=== PATIENT | male | born 1995 | race Asian ===

== ENCOUNTER 2017-10-04 17:24 | Emergency (ER) | payer OTHER ==
[2017-10-04 17:49] LABS: Urine Appearance Clear; Urine Blood Negative (Negative); Urine Color Yellow; Urine Ketones Negative (Negative); Urine Protein Negative (Negative); Urine Specific Gravity 1.015 (1.010-1.030); Urine Urobilinogen Negative (Negative)
[2017-10-04 18:03] LABS: ABS Basophils 0 10^3/ul (0-0.2); ABS Eosinophils 0.1 10^3/ul (0-0.6); ABS Lymphocytes 1.9 10^3/ul (1.0-4.8); ABS Monocytes 0.3 10^3/ul (0-0.8); ABS Neutrophils 4.1 10^3/ul (1.5-7.7); ABS Nucleated RBC 0 10^3/ul; Hematocrit 47 % (42-52); Hemoglobin 16.2 g/dl (14.0-18.0); Lymphocyte % 29.8 % (25-47); Mean Corpuscular HGB Conc 34 g/dl (31-36); Mean Corpuscular Hemoglobin 31 pg (27-31); Mean Corpuscular Volume 90 fL (80-94); Mean Platelet Volume 7.8 um3 (7.4-10.4); Nucleated Red Blood Cells % 0.1; Platelet Count 282 10^3/ul (150-450); Red Blood Count 5.23 10^6/ul (4.0-5.4); Red Cell Distribution Width 13 % (10.5-15); White Blood Count 6.4 10^3/ul (3.5-10.8)
[2017-10-04 18:18] LABS: EGFR Non-African American 85.8 (>60)
[2017-10-04 21:38] VITALS: BP 121/82
--- NOTE | 2017-10-04 22:22 | ED ---
Efra Billy Tiffany, scribed for Nakita Sanderson MD on 10/04/17 at 2217 . Progress - Progress Note Progress Note: Pt signed out from Dr. Rojas. Sims (mental health sales promotion coordinator), who discussed pt care with Dr. Handley, psychiatry, reports that patient will be discharged home. - Consult/PCP Time Called: 17:24 Course/Dx - Course Course Of Treatment: 22 y/o M, signed out from Dr. Fong, referred to [facility] from [facility] for MHE. Mental health evaluation done by Levi and Dr. Handley, psychiatry. Pt will be discharged home. - Diagnoses Provider Diagnoses: Mood disorder, Stress and adjustment reaction Discharge - Sign-Out/Discharge Documenting (check all that apply): Discharge/Admit/Transfer - Discharge Plan Condition: Stable Disposition: HOME Patient Education Materials: Stress (ED) Referrals: No Primary Care Phys,NOPCP [Primary Care Provider] - The documentation as recorded by the Efra faulkner Tiffany accurately reflects the service I personally performed and the decisions made by , Nakita Sanderson MD.
--- NOTE | 2017-10-05 21:19 | ED ---
Sue Billy Rebecca, scribed for Wm Cabrera MD on 10/04/17 at 1815 . Psychiatric Complaint - HPI Summary HPI Summary: Pt is a 22 y/o M BIBA who presents to ED after being referred by [facility] for a MHE. Pt reports that he went to [facility] earlier today as a follow up to a syncopal episode 2 days ago that occurred as a result of stress. When he told them that he was stressed, they scheduled appointments for him with a counselor. He states that they also began asking him questions such as if you will in the next few days. He responded that he wasnt sure, as he found that to be the most rational answer and that you cannot predict the future. Denies SIs, HIs. PMHx depression went to counseling 2 years ago and does not need medication. - History Of Current Complaint Chief Complaint: EDMentalHealth Time Seen by Provider: 10/04/17 17:33 Hx Obtained From: Patient Severity Currently: None Aggravating Factor(s): Recent Stress Alleviating Factor(s): Nothing Related History: Positive For: Prior Psychiatric Issues - Depression Has Suicidal: Denies: Thoughts Recent Stressor(s): Essay - Allergies/Home Medications Allergies/Adverse Reactions: Allergies Allergy/AdvReac Type Severity Reaction Status Date / Time No Known Allergies Allergy Verified 10/04/17 17:51 Home Medications: Home Medications NK [No Home Medications Reported] 10/04/17 [History Confirmed 10/04/17] PMH/Surg Hx/FS Hx/Imm Hx Endocrine/Hematology History: Denies: Hx Diabetes Psychiatric History: Denies: Hx Depression Infectious Disease History: No Infectious Disease History: Denies: Traveled Outside the [place] in Last 30 Days - Family History Known Family History: Negative: Diabetes - Social History Occupation: Student Lives: Dormitory/Roommates Review of Systems Positive: Syncope - 2 days ago Positive: Other - Stress; NEGATIVE: SIs All Other Systems Reviewed And Are Negative: Yes Physical Exam - Summary Physical Exam Summary: VITAL SIGNS: Reviewed. GENERAL: Patient is a well-developed and nourished male who is lying comfortable in the stretcher. Patient is not in any acute respiratory distress. HEAD AND FACE: No signs of trauma. No ecchymosis, hematomas or skull depressions. No sinus tenderness. EYES: PERRLA, EOMI x 2, No injected conjunctiva, no nystagmus. EARS: Hearing grossly intact. Ear canals and tympanic membranes are within normal limits. MOUTH: Oropharynx within normal limits. NECK: Supple, trachea is midline, no adenopathy, no JVD, no carotid bruit, no c- spine tenderness, neck with full ROM. CHEST: Symmetric, no tenderness at palpation LUNGS: Clear to auscultation bilaterally. No wheezing or crackles. CVS: Regular rate and rhythm, S1 and S2 present, no murmurs or gallops appreciated. ABDOMEN: Soft, non-tender. No signs of distention. No rebound no guarding, and no masses palpated. Bowel sounds are normal. EXTREMITIES: FROM in all major joints, no edema, no cyanosis or clubbing. NEURO: Alert and oriented x 3. No acute neurological deficits. Speech is normal and follows commands. SKIN: Dry and warm PSYCH: Denies any suicidal thoughts or plan. No homicidal thoughts or plan. No signs of psychosis or pressure speech. No tangential speech. Triage Information Reviewed: Yes Vital Signs On Initial Exam: Initial Vitals Temp Pulse Resp BP Pulse Ox 100.5 F 107 16 138/107 99 10/04/17 17:45 10/04/17 17:45 10/04/17 17:45 10/04/17 17:45 10/04/17 17:45 Vital Signs Reviewed: Yes Diagnostics - Vital Signs Vital Signs Temp Pulse Resp BP Pulse Ox 10/04/17 17:45 100.5 F 107 16 138/107 99 - Laboratory Lab Results: Lab Results 10/04/17 10/04/17 10/04/17 Range/Units 17:41 17:41 17:55 WBC 6.4 (3.5-10.8) 10^3/ul RBC 5.23 (4.0-5.4) 10^6/ul Hgb 16.2 (14.0-18.0) g/dl Hct 47 (42-52) % MCV 90 (80-94) fL MCH 31 (27-31) pg MCHC 34 (31-36) g/dl RDW 13 (10.5-15) % Plt Count 282 (150-450) 10^3/ul MPV 7.8 (7.4-10.4) um3 Neut % (Auto) 63.9 (38-83) % Lymph % (Auto) 29.8 (25-47) % [place] % (Auto) 4.6 (0-7) % Eos % (Auto) 1.0 (0-6) % Baso % (Auto) 0.7 (0-2) % Absolute Neuts (auto) 4.1 (1.5-7.7) 10^3/ul Absolute Lymphs (auto) 1.9 (1.0-4.8) 10^3/ul Absolute Monos (auto) 0.3 (0-0.8) 10^3/ul Absolute Eos (auto) 0.1 (0-0.6) 10^3/ul Absolute Basos (auto) 0 (0-0.2) 10^3/ul Absolute Nucleated RBC 0 10^3/ul Nucleated RBC % 0.1 Urine Color Yellow Urine Appearance Clear Urine pH 7.0 (5-9) Ur Specific [place] 1.015 (1.010-1.030) Urine Protein Negative (Negative) Urine Ketones Negative (Negative) Urine Blood Negative (Negative) Urine Nitrate Negative (Negative) Urine Bilirubin Negative (Negative) Urine Urobilinogen Negative (Negative) Ur Leukocyte Esterase Negative (Negative) Urine Glucose Negative (Negative) Urine Opiates Screen None detected (None Detect) Ur Barbiturates Screen None detected (None Detect) Ur Phencyclidine Scrn None detected (None Detect) Ur Amphetamines Screen None detected (None Detect) U Benzodiazepines Scrn None detected (None Detect) Urine Cocaine Screen None detected (None Detect) U Cannabinoids Screen None detected (None Detect) Result Diagrams: 10/04/17 17:55 10/04/17 19:19 Lab Statement: Any lab studies that have been ordered have been reviewed, and results considered in the medical decision making process. Course/Dx - Course Assessment/Plan: Blood work w/o a significant abnormality. He is medically cleared. He is awaiting for a MHE. Patient is hemodynamically stable and A+O x 3. Patient sing out to Dr. Sanderson for recomendations - Differential Dx/Clinical Impression Differential Diagnosis/HQI/PQRI: Positive: Anxiety, Depression, Suicidal Ideation Provider Diagnosis: Mood disorder, Stress and adjustment reaction Discharge - Sign-Out/Discharge Documenting (check all that apply): Sign-Out Patient Signing out patient TO: Nakita Elfar - Discharge Plan Condition: Stable Disposition: HOME Patient Education Materials: Stress (ED) Referrals: No Primary Care Phys,NOPCP [Primary Care Provider] - - Billing Disposition and Condition Condition: STABLE Disposition: HOME The documentation as recorded by the Sue faulkner Rebecca accurately reflects the service I personally performed and the decisions made by , Wm Cabrera MD.
== END 2017-10-04 22:42 | disposition home or self-care (01) ==
LOC: ED 17:24
DX: F39 Unspecified mood [affective] disorder (principal); F43.9 Reaction to severe stress, unspecified; F43.20 Adjustment disorder, unspecified
CPT/HCPCS: 36415; 80053; 80307; 80320; 80329; 81003; 84443; 85025; 99285; G0480